=== PATIENT | male | born 1975 | race African-American/Black ===

== ENCOUNTER 2017-05-25 23:40 | Emergency (ER) | payer SELFPAY ==
[~2017-05-25] VITALS: Ht 165.1 cm; Wt 75.0 kg
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
[2017-05-26 00:06] VITALS: BP 123/82; PULSE 88; RESP 20; TEMP 98.7; O2SAT 99
[2017-05-26] MEDS ORDERED: ZOLO50TA PO (01:02)
[2017-05-26] MEDS ORDERED: AMOX500C PO (05:26)
[2017-05-26 06:32] VITALS: BP 147/68; PULSE 91; RESP 17; TEMP 98; O2SAT 100
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
--- NOTE | 2017-05-26 13:39 | PD ---
Physical Exam Date Seen by Provider: May 26, 2017 Narrative 42y male cheatham act transfer from [facility]. Patient was medically cleared and evaluated by psych. Patient does not meet inpatient criteria and will be discharged for follow-up as outpatient. Note that patient does have a required follow-up with a maxillofacial surgeon. Currently, he denies suicidal or homicidal ideations. Patient states understanding and he will comply. Data Data Last Documented VS Vital Signs Date Time Temp Pulse Resp B/P (MAP) Pulse Ox O2 Delivery O2 Flow Rate FiO2 05/26/17 14:46 05/26/17 06:32 98.0 91 17 100 Room Air Orders Orders Psych Screen (05/25/17 23:47) Diet Regular Basic (05/26/17 Breakfast) Diet Regular Basic (05/26/17 Lunch) Ed Discharge Order (05/26/17 13:39) MDM Supervised Visit with VIVIEN: No Diagnosis Primary Impression: Medical clearance for psychiatric admission Additional Impressions: Traumatic subconjunctival hemorrhage of left eye Left orbit fracture Referrals: Expeller Worker Oral Maxillofacial Surgeon Additional Instruction: Follow-up with the oral facial surgeon in 2 weeks as discussed at [facility]. As discussed today, follow-up with an ortho nurse in the next few days for eye examination. Naty Nogueira May 26, 2017 13:39
== END 2017-05-26 14:48 | disposition home or self-care (01) ==
LOC: NEPJ 23:40
DX: S02.82XA Fracture of other specified skull and facial bones, left side, initial encounter for closed fracture (principal); Y04.0XXA Assault by unarmed brawl or fight, initial encounter
CPT/HCPCS: 99281

== ENCOUNTER 2017-05-30 04:20 | Emergency (ER) | payer OTHER ==
[~2017-05-30] VITALS: Ht 167.6 cm; Wt 65.0 kg
[~2017-05-30 04:20] MED LIST: AMOX500C PO; ZOLO50TA PO
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
[2017-05-30 04:50] VITALS: BP 119/75; PULSE 82; RESP 18; TEMP 98.1; O2SAT 98
[2017-05-30 09:00] VITALS: BP 111/65; PULSE 75; RESP 18; TEMP 98.1; O2SAT 95
--- NOTE | 2017-05-30 09:45 | PD ---
Physical Exam Time Seen by Provider: 09:[address] Hector has evaluated the patient, lifted Borrero ravinder and cleared the patient for discharge. Data Data Last Documented VS Vital Signs Date Time Temp Pulse Resp B/P (MAP) Pulse Ox O2 Delivery O2 Flow Rate FiO2 05/30/17 09:00 98.1 75 18 111/65 (80) 95 Room Air Orders Orders Psych Screen (05/30/17 04:37) Drug Screen, Random Urine (05/30/17 04:37) Alcohol (Ethanol) (05/30/17 04:37) Diet Regular Basic (05/30/17 Breakfast) Labs Laboratory Tests Test 05/30/17 04:47 05/30/17 05:09 Ethyl Alcohol Level 17 MG/DL Urine Opiates Screen NEG Urine Barbiturates Screen NEG Urine Amphetamines Screen NEG Urine Benzodiazepines Screen NEG Urine Cocaine Screen POS Urine Cannabinoids Screen POS MDM Supervised Visit with VIVIEN: No Narrative Course Dr. Hector has evaluated the patient, lifted Borrero act and cleared the patient for discharge. Transportation back to [place] has been arranged. Patient contracts safety. Denies suicidal or homicidal ideations. Patient [facility] be [facility]. Has friends and family for support. Patient was medically cleared by alternate provider prior to psych screening. Patient has been evaluated by psychiatry and and is now cleared for discharge. Diagnosis Primary Impression: Left orbit fracture Additional Impressions: Medical clearance for psychiatric admission Traumatic subconjunctival hemorrhage of left eye Referrals: RAVINDER (Out patient) [facility] Primary Care Physician Psychiatrist Mohamud VAZQUEZ Behavioral Patient Instructions: Facial Fracture (ED), General Instructions Additional Instruction: As discussed previously, follow-up with a superficial surgeon Dr. Roa when he returned to [place]. Follow-up with an maintenance carpenter at some point in the next few days on a routine basis. Contract safety to your self and others Follow-up with psychiatry Follow-up with primary care provider Follow-up with Meir Siegel Return to the emergency department immediately with worsening of symptoms Med/Other Pt SpecificInfo: No Change to Meds, No Meds Exist/No RX given Disposition: 01 DISCHARGE HOME Condition: Stable Ita Landry May 30, 2017 09:45
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
== END 2017-05-30 10:29 | disposition home or self-care (01) ==
LOC: NEPD 04:20 → NEPJ 10:29
DX: F43.25 Adjustment disorder with mixed disturbance of emotions and conduct (principal); F14.10 Cocaine abuse, uncomplicated; F17.210 Nicotine dependence, cigarettes, uncomplicated; F31.9 Bipolar disorder, unspecified; S02.82XA Fracture of other specified skull and facial bones, left side, initial encounter for closed fracture; H11.32 Conjunctival hemorrhage, left eye; Y04.0XXA Assault by unarmed brawl or fight, initial encounter; Z59.0 Homelessness; Z79.899 Other long term (current) drug therapy
CPT/HCPCS: 80307; 99284